=== PATIENT | female | born 1990 | race Caucasian/White ===

== ENCOUNTER 2017-10-14 13:02 | Inpatient (IN) | payer MEDICAID ==
[2017-11-13] MEDS ORDERED: CARBOPROST 250 MCG INJ IM (11:00)
[2017-11-13] MEDS ORDERED: OXYTOCIN 30 UNITS/LR 500 ML IV ×2 (11:00)
[2017-11-13] MEDS ORDERED: METHYLERGONOVINE 0.2 MG INJ IM (11:00)
[2017-11-13] MEDS ORDERED: LIDOCAINE 1% (MPF) 30 ML INJ INJ (11:00)
[2017-11-13] MEDS ORDERED: BUTORPHANOL 2 MG INJ IV (11:00)
[2017-11-13] MEDS ORDERED: IBUPROFEN 600 MG TAB PO (11:00)
[2017-11-13] MEDS ORDERED: MISOPROSTOL 200 MCG TAB PR (11:00)
[2017-11-13] MEDS: LACTATED RINGER'S 1,000 ML IV* ×4 (11:09→22:09)
[2017-11-13] MEDS: OXYTOCIN 30 UNITS/LR 500 ML IV (11:54)
[2017-11-13 11:55] LABS: ADD MAN DIFF? NO
[2017-11-13 12:12] LABS: BASOPHILS % 0.5 % (0.0-2.0); EOSINOPHILS # 0.1 10^3/ul (0.0-0.5); EOSINOPHILS % 2.2 % (0.0-7.0); HEMATOCRIT 39.7 % (37.0-47.0); HEMOGLOBIN 13.6 g/dl (12.0-16.0); LYMPHOCYTES # 1.8 10^3/ul (0.8-2.9); LYMPHOCYTES % 30.3 % (15.0-51.0); MEAN CORPUSCULAR HEMOGLOBIN 31.3 pg (29.0-33.0); MEAN CORPUSCULAR HGB CONC 34.3 g/dl (32.0-37.0); MEAN CORPUSCULAR VOLUME 91.5 fl (82.0-101.0); MONOCYTE # 0.4 10^3/ul (0.3-0.9); MONOCYTES % 6.5 % (0.0-11.0); NEUTROPHIL # 3.6 10^3/ul (1.6-7.5); NEUTROPHILS % 60.2 % (39.0-77.0); PLATELET COUNT 177 10^3/UL (140-415); RED BLOOD COUNT 4.34 10^6/ul (4.20-5.40); RED CELL DISTRIBUTION WIDTH 14.6 % (11.5-14.5)
[2017-11-13 12:30] LABS: INR 0.84; PARTIAL THROMBOPLASTIN TIME 26.9 Sec (25.0-35.0); PROTIME 11.6 Sec (11.9-14.9); PT RATIO 0.9
[2017-11-13 12:35] LABS: GLUCOSE 83 mg/dl (70-220)
[2017-11-13 14:05] LABS: HEPATITIS B SURFACE ANTIGEN NEGATIVE (NEGATIVE)
[2017-11-13] MEDS ORDERED: DEXTROSE 5%-LR 1,000 ML IV (19:00)
[2017-11-13] MEDS ORDERED: ONDANSETRON 4 MG INJ IV (21:30)
[2017-11-13] MEDS ORDERED: NALOXONE (0.4 MG/ML) INJ IV (21:30)
[2017-11-13] MEDS ORDERED: DIPHENHYDRAMINE 50 MG INJ IV (21:30)
[2017-11-13] MEDS ORDERED: FENTAnyl 2MCG/ML-ROPIV 0.2% 100 ML BAG EPI (21:30)
[2017-11-13] MEDS ORDERED: FENTAnyl 2MCG/ML-ROPIV 0.2% 100 ML (21:35)
[2017-11-13 22:11] LABS: RAPID PLASMA REAGIN NONREACTIVE (NR)
[2017-11-13] MEDS: MINERAL OIL LIGHT 10 ML VIAL TOP (23:00)
[2017-11-14 00:50] LABS: AMPHETAMINE/METHAMPHETAMINE Negative (NEGATIVE); BARBITURATES Negative (NEGATIVE); BENZODIAZEPINES Negative (NEGATIVE); CANNABINOIDS Negative (NEGATIVE); COCAINE Negative (NEGATIVE); OPIATES Negative (NEGATIVE)
[2017-11-14] MEDS: LACTATED RINGER'S 1,000 ML IV* ×2 (01:40→07:17)
[2017-11-14] MEDS: OXYTOCIN 30 UNITS/LR 500 ML IV (03:17)
[2017-11-14] MEDS ORDERED: OXYCODONE/ASPIRIN (4.88/325) TAB PO ×2 (05:30)
[2017-11-14] MEDS ORDERED: OXYTOCIN 30 UNITS/LR 500 ML IV (05:30)
[2017-11-14] MEDS ORDERED: METHYLERGONOVINE 0.2 MG INJ IM (05:30)
[2017-11-14] MEDS ORDERED: CARBOPROST 250 MCG INJ IM (05:30)
[2017-11-14] MEDS ORDERED: ZOLPIDEM 5 MG TAB PO (05:30)
[2017-11-14] MEDS ORDERED: MISOPROSTOL 200 MCG TAB PR (05:30)
[2017-11-14] MEDS: IBUPROFEN 600 MG TAB PO ×4 (05:58→23:44)
[2017-11-14] MEDS: WITCH HAZEL/GLYCERIN PAD PR (05:58)
[2017-11-14] MEDS: LANOLIN 7 GM TUBE TOP (05:59)
[2017-11-14] MEDS: BENZOCAINE 20% 56 ML SPRAY TOP (05:59)
[2017-11-14] MEDS: SENNA/DOCUSATE NA (8.6MG/50MG) TAB PO ×2 (09:51→21:00)
[2017-11-15] MEDS: IBUPROFEN 600 MG TAB PO ×4 (06:02→23:48)
[2017-11-15 08:21] LABS: ADD MAN DIFF? NO
[2017-11-15 08:26] LABS: WHITE BLOOD COUNT 7.1 10^3/ul (4.8-10.8)
[2017-11-15 08:26] LABS: BASOPHILS % 0.4 % (0.0-2.0); EOSINOPHILS # 0.3 10^3/ul (0.0-0.5); HEMATOCRIT 37.1 % (37.0-47.0); HEMOGLOBIN 12.4 g/dl (12.0-16.0); LYMPHOCYTES # 1.8 10^3/ul (0.8-2.9); LYMPHOCYTES % 25.6 % (15.0-51.0); MEAN CORPUSCULAR HEMOGLOBIN 31.5 pg (29.0-33.0); MEAN CORPUSCULAR HGB CONC 33.4 g/dl (32.0-37.0); MEAN CORPUSCULAR VOLUME 94.2 fl (82.0-101.0); MEAN PLATELET VOLUME 10.7 fl (7.4-10.4); MONOCYTE # 0.4 10^3/ul (0.3-0.9); MONOCYTES % 5.1 % (0.0-11.0); NEUTROPHIL # 4.6 10^3/ul (1.6-7.5); NEUTROPHILS % 64.5 % (39.0-77.0); PLATELET COUNT 157 10^3/UL (140-415); RED BLOOD COUNT 3.94 10^6/ul (4.20-5.40)
[2017-11-15] MEDS: SENNA/DOCUSATE NA (8.6MG/50MG) TAB PO ×2 (09:00→21:00)
[2017-11-15] MEDS: LANOLIN 7 GM TUBE TOP (23:48)
[2017-11-16] MEDS: IBUPROFEN 600 MG TAB PO ×2 (05:38→12:00)
[2017-11-16] MEDS: SENNA/DOCUSATE NA (8.6MG/50MG) TAB PO (09:00)
[2017-11-16] MEDS: WITCH HAZEL/GLYCERIN PAD PR (14:28)
[2017-11-16] MEDS: LANOLIN 7 GM TUBE TOP (14:28)
[2017-11-16] MEDS: DIPHTH/TET/ACEL PERTUSS (ADULT) 0.5 ML VIAL IM* (14:40)
== END 2017-11-16 14:45 | disposition home or self-care (01) | DRG 775 ==
LOC: OBT 13:02 → PP1 11-14 05:08 → L-D 11-13 10:20
PROVIDERS: Obstetrics & Gynecology
PROC: 10E0XZZ Delivery of Products of Conception, External Approach (ICD-10-PCS; principal; 2017-11-13)
PROC: 0KQM0ZZ Repair Perineum Muscle, Open Approach (ICD-10-PCS; 2017-11-13)
PROC: 3E033VJ Introduction of Other Hormone into Peripheral Vein, Percutaneous Approach (ICD-10-PCS; 2017-11-13)
DX: O48.0 Post-term pregnancy (principal); Z3A.40 40 weeks gestation of pregnancy; O24.429 Gestational diabetes mellitus in childbirth, unspecified control; O69.81X0 Labor and delivery complicated by cord around neck, without compression, not applicable or unspecified; Z37.0 Single live birth
CPT/HCPCS: 59025; 62319; 76816; 80307; 82947; 82962; 85025; 85610; 85730; 86592; 86850; 86900; 86901; 87340; 90715; 99464